=== PATIENT | female | born 1970 | race Caucasian/White ===

== ENCOUNTER → 2018-08-27 | Outpatient (CLI) | payer BC ==
[~2018-08-27] MED LIST: ATOR10TA9 PO; CHOL500050 PO; ETHY1TAB2 PO; IRON1TAB60 PO; LISI-167 PO; RABE20TA18 PO
== END | disposition home or self-care (01) ==
LOC: CFH 10:31
PROVIDERS: ATTEND Nurse Practitioner Primary Care
DX: M47.816 Spondylosis without myelopathy or radiculopathy, lumbar region (principal); G95.89 Other specified diseases of spinal cord; R20.2 Paresthesia of skin
CPT/HCPCS: 72100

== ENCOUNTER 2018-10-29 05:39 | Day surgery (SDC) | payer BC ==
[~2018-10-29] VITALS: Ht 160 cm; Wt 123.5 kg
[2018-10-29 06:28] VITALS: BP 117/81
== END 2018-10-29 09:20 | disposition home or self-care (01) ==
LOC: OUT 05:39
PROVIDERS: ATTEND Internal Medicine Gastroenterology
DX: D12.4 Benign neoplasm of descending colon (principal); K64.4 Residual hemorrhoidal skin tags; K64.8 Other hemorrhoids; K29.50 Unspecified chronic gastritis without bleeding; K21.9 Gastro-esophageal reflux disease without esophagitis; R13.10 Dysphagia, unspecified; E11.9 Type 2 diabetes mellitus without complications; I10 Essential (primary) hypertension; E55.9 Vitamin D deficiency, unspecified; E53.8 Deficiency of other specified B group vitamins; E66.01 Morbid (severe) obesity due to excess calories; Z68.42 Body mass index [BMI] 45.0-49.9, adult; Z79.899 Other long term (current) drug therapy
CPT/HCPCS: 36415; 43239; 43248; 45380; 45385; 80053; 82962; 85025; 88305; 88342; 93005; J2704; J7120